=== PATIENT | male | born 1965 | race Asian ===

== ENCOUNTER 2018-08-06 06:48 | Day surgery (SDC) | payer OTHER, SELFPAY ==
[2018-08-06 07:07] VITALS: BMI 28.3
[2018-08-06 07:20] VITALS: BP 117/84; PULSE 63; RESP 16; TEMP 35.6; O2SAT 97
[2018-08-06] MEDS: MIDAZOLAM 5 MG/5 ML VIAL IV (08:17)
[2018-08-06] MEDS: fentaNYL 250 MCG/5 ML INJ IV (08:18)
[2018-08-06] MEDS: SODIUM CHLORIDE 0.9% 1,000 ML 200 ML IV (08:48)
[2018-08-06] MEDS: ONDANSETRON 4 MG/2 ML INJ IV (08:51)
--- NOTE | 2018-08-06 08:57 | SUR.OPER ---
DROWSY BUT RESPONSIVE TO TACTILE STIMULATION
--- NOTE | 2018-08-06 09:02 | PM.HP.1 ---
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 He denies any problems or symptoms related to the function of his GI tract. He reports he needs a colonoscopy as part of a health maintenance program. Patient History Family & Social History Family History: Reviewed 08/06/18 by Sharonda Kern MD Social History: household members spouse Meds Home Medications Medication Instructions Recorded Confirmed Type aspirin 81 mg PO QDAY #0 09/06/13 08/06/18 History losartan 50 mg PO QDAY #90 tab 11/26/17 08/06/18 Rx Allergies Allergy/AdvReac Type Severity Reaction Status Date / Time crab Allergy Unknown swelling, Verified 08/06/18 07:03 hives Review of Systems Review of Systems All systems reviewed & are unremarkable except as noted in HPI and below Exam Vital Signs (past 8 hours): - 08/06/18 07:20 Temperature 96.1 F L Pulse Rate 63 Respiratory Rate 16 Blood Pressure 117/84 Pulse Oximetry 97 Oxygen Delivery Method Room Air Narrative Exam Narrative: Very pleasant, well-nourished, well-developed gentleman in distress. HEENT: Normocephalic and atraumatic, pupils equal round reactive to light accommodation with anicteric sclera Lungs: Clear to auscultation bilaterally Heart: Regular rate rhythm Abdomen: Soft, nontender, active bowel sounds Extremities: Warm and well perfused without edema Assessment & Plan Plan: Assessment/Plan Narrative: Pleasant gentleman who presents for his 1st screening colonoscopy. We discussed the risks and benefits of the procedure the patient expressed a desire to complete it today
--- NOTE | 2018-08-06 09:04 | PM.OP.1 ---
Operative Date/Time/Diagnoses Date of procedure: 08/06/18 Time of procedure: 09:04 Pre-op diagnosis: Screening Post-op diagnosis: same Procedure & Clinicians Procedure: Colonoscopy to the cecum Same procedure as scheduled: Yes Indications: No prior colonoscopy Surgeon: Sharonda Kern Anesthesia Type: Sedation (Versed 4 mg, fentanyl 150 mcg, Zofran 4 mg) Operative Notes Findings: 1. Excellent prep 2. No polyps or mass lesions 3. No AV malformations 4. Very minimal diverticular disease, less than expected for age 57. Grade 1 internal hemorrhoids 6. Normal colonoscopy Closure Type: not applicable Specimen(s): none sent Procedure in detail: After obtaining informed consent, the patient was brought to the GI suite and placed in the left lateral decubitus position on the examination table. After placement of appropriate monitors, the patient was given incremental doses of Versed and Fentanyl until an appropriate level of sedation was achieved. A time out was held per [facility] protocol. A digital rectal examination was performed and did not reveal any masses or obstructing lesions. The colonoscope was gently passed into the patient's anus and the entire colon navigated to the level of the cecum with minimal difficulty. Once in the cecum, the scope was withdrawn being sure to go before and beyond all mucosal folds and prominences and get an excellent examination. The findings are noted above. At the level of the rectal vault, the scope was retroflexed and the internal anal canal was examined. The scope was straightened and air aspirated from the colon. The instrument was removed from the patient's body and the procedure was concluded. The patient was allowed to awaken from sedation without difficulty and taken to the post-anesthesia care unit in good condition. Total sedation time was 21 min Total withdrawal time was 8 min Complications: none Condition: stable Disposition: PACU Plan for aftercare: 1. Discharge to home 2. Plan for next colonoscopy in 10 years or as clinically indicated
[2018-08-06 09:07] VITALS: BP 124/86; PULSE 73; RESP 13; TEMP 36.8; O2SAT 97
[2018-08-06 09:12] VITALS: BP 125/85; PULSE 69; RESP 10; O2SAT 98
[2018-08-06 09:17] VITALS: BP 124/81; PULSE 70; RESP 13; TEMP 36.4; O2SAT 100
[2018-08-06 09:25] VITALS: BP 112/81; PULSE 68; RESP 16; TEMP 36.2; O2SAT 98
== END 2018-08-06 09:39 | disposition home or self-care (01) ==
PROVIDERS: PCP Internal Medicine; Visit Provider Surgery
PROC: 0DJD8ZZ Inspection of Lower Intestinal Tract, Via Natural or Artificial Opening Endoscopic (ICD-10-PCS; CPT 45378; principal; 2018-08-06 07:45)
DX: Z12.11 Encounter for screening for malignant neoplasm of colon (principal); K57.30 Diverticulosis of large intestine without perforation or abscess without bleeding; K64.0 First degree hemorrhoids
CPT/HCPCS: 45378; 99152; J2250; J2405; J3010

== ENCOUNTER → 2020-02-12 09:28 | Outpatient (CLI) | payer OTHER, SELFPAY ==
[2020-02-12 11:18] LABS: Alanine Aminotransferase 49 IU/L (<50); Albumin 4.6 g/dL (3.5-5.0); Albumin Globulin Ratio 1.5 (1.0-2.8); Alkaline Phosphatase 47 U/L (38-126); Aspartate Aminotransferase 38 IU/L (17-59); BUN Creatinine Ratio 18.8 (6-22); Bilirubin Total 0.7 mg/dL (0.2-1.3); Blood Urea Nitrogen 15 mg/dL (9-20); Calcium 9.7 mg/dL (8.4-10.2); Carbon Dioxide 29 mmol/L (22-32); Chloride 104 mmol/L (98-107); Cholesterol 180 mg/dL (140-199); Estimated Glomerular Filt Rate > 60.0 mL/min (>60); Glucose 105 mg/dL (70-100); HDL Cholesterol 25 mg/dL (40-60); HEMOLYSIS < 15 (0-50); LDL Cholesterol Calculated 98 mg/dL (<100); Sodium 141 mmol/L (137-145); Total Protein 7.6 g/dL (6.3-8.2); Triglycerides 284 mg/dL (35-150)
== END ==
PROVIDERS: PCP Internal Medicine; Referring Provider Internal Medicine; Visit Provider Internal Medicine
DX: Z13.6 Encounter for screening for cardiovascular disorders (principal); Z13.1 Encounter for screening for diabetes mellitus; Z13.220 Encounter for screening for lipoid disorders; I10 Essential (primary) hypertension; I48.0 Paroxysmal atrial fibrillation
CPT/HCPCS: 36415; 80053; 80061

== ENCOUNTER → 2021-08-03 14:23 | Outpatient (CLI) | payer OTHER, SELFPAY ==
[2021-08-03 15:32] LABS: BUN Creatinine Ratio 17.3 (6-22); Blood Urea Nitrogen 13 mg/dL (9-20); Calcium 9.4 mg/dL (8.4-10.2); Carbon Dioxide 25 mmol/L (22-32); Chloride 105 mmol/L (98-107); Estimated Glomerular Filt Rate > 60.0 mL/min (>60); Glucose 146 mg/dL (70-100); HEMOLYSIS 27 (0-50); Sodium 138 mmol/L (137-145)
== END ==
PROVIDERS: PCP Internal Medicine; Referring Provider Internal Medicine; Visit Provider Internal Medicine
DX: I10 Essential (primary) hypertension (principal)
CPT/HCPCS: 36415; 80048

== ENCOUNTER → 2022-07-05 13:59 | Outpatient (CLI) | payer OTHER, SELFPAY ==
[2022-07-05 15:42] LABS: Alanine Aminotransferase 50 IU/L (<50); Albumin 4.4 g/dL (3.5-5.0); Albumin Globulin Ratio 1.5 (1.0-2.8); Alkaline Phosphatase 46 U/L (38-126); Aspartate Aminotransferase 42 IU/L (17-59); BUN Creatinine Ratio 13.3 (6-22); Blood Urea Nitrogen 11 mg/dL (9-20); C-Reactive Protein Quant < 0.5 mg/dL (<1.0); Calcium 9.1 mg/dL (8.4-10.2); Carbon Dioxide 30 mmol/L (22-32); Chloride 102 mmol/L (98-107); Estimated Glomerular Filt Rate > 60 mL/min (>60); Glucose 96 mg/dL (70-100); HEMOLYSIS < 15 (0-50); Potassium 4.4 mmol/L (3.4-5.1); Sodium 138 mmol/L (137-145); Total Protein 7.4 g/dL (6.3-8.2)
[2022-07-05 16:02] LABS: Erythrocyte Sedimentation Rate 1 MM/HR (0-15)
== END ==
PROVIDERS: PCP Internal Medicine; Referring Provider Internal Medicine; Visit Provider Internal Medicine
DX: I10 Essential (primary) hypertension (principal)
CPT/HCPCS: 36415; 80053; 85651; 86140